=== PATIENT | female | born 1965 | race Caucasian/White ===

== ENCOUNTER 2017-11-14 08:33 | Emergency (ER) | payer MEDICAID, OTHER ==
[2017-11-14 08:38] VITALS: BP 151/83; PULSE 76; RESP 16; TEMP 98.3; O2SAT 98
[2017-11-14 08:40] VITALS: BMI 24.0
--- NOTE | 2017-11-14 09:53 | ED PDOC ---
HPI: General Adult Time Seen by Provider: 11/14/17 09:15 Chief Complaint (Nursing): Med Refill Chief Complaint (Provider): Med Refill History Per: Patient History/Exam Limitations: no limitations Additional Complaint(s): 52 y/o female presents to the ED for medicine refill. Sates that she is aon blood pressue medications, takes Toprol for tachycardia and Lexapro for PTSD and depression. Reports that she ran out of medications about a month ago and wasn't able to get new medications as her medicaid was cut. She reports feeling anxious since then and wants her medications but she can't. Denies any further medical complaints. Past Medical History Reviewed: Historical Data, Nursing Documentation, Vital Signs Vital Signs: Last Vital Signs Temp 98.3 F 11/14/17 08:37 Pulse 76 11/14/17 08:37 Resp 16 11/14/17 08:37 BP 151/83 H 11/14/17 08:37 Pulse Ox 98 11/14/17 10:07 - Medical History PMH: Hypothyroidism - Surgical History Surgical History: No Surg Hx - Family History Family History: States: Unknown Family Hx - Social History Current smoker - smoking cessation education provided: No (Never smoked) Alcohol: Social Drugs: Denies - Allergies Allergies/Adverse Reactions: Allergies Allergy/AdvReac Type Severity Reaction Status Date / Time No Known Allergies Allergy Verified 11/14/17 08:48 Review of Systems ROS Statement: Except As Marked, All Systems Reviewed And Found Negative (As per HPI, otherwise negative) Constitutional: Positive for: Other (Medicine refill) Physical Exam - Reviewed Nursing Documentation Reviewed: Yes Vital Signs Reviewed: Yes - Physical Exam Appears: Positive for: Non-toxic, No Acute Distress Head Exam: Positive for: ATRAUMATIC, NORMAL INSPECTION, NORMOCEPHALIC Skin: Positive for: Normal Color, Warm, Dry Eye Exam: Positive for: EOMI, Normal appearance, PERRL ENT: Positive for: Normal ENT Inspection Neck: Positive for: Normal, Painless ROM, Supple Cardiovascular/Chest: Positive for: Regular Rate, Rhythm. Negative for: Murmur Respiratory: Positive for: Normal Breath Sounds. Negative for: Accessory Muscle Use, Respiratory Distress Gastrointestinal/Abdominal: Positive for: Normal Exam, Bowel Sounds, Soft. Negative for: Tenderness Back: Positive for: Normal Inspection Extremity: Positive for: Normal ROM. Negative for: Deformity Neurologic/Psych: Positive for: Alert, Oriented (x3) - ECG O2 Sat by Pulse Oximetry: 98 (RA) Pulse Ox Interpretation: Normal Medical Decision Making Medical Decision Making: Time: 09:15 Initial Impression: Med refill Plan: Crisis Evaluation Time: 10:06 Patient was seen by crisis and got an appointment in 3 days for mental health followup Scribe Attestation: Documented by Suzan Morton acting as a scribe for Dimple Garzon MD. Scribe Attestation: All medical record entries made by the Scribe were at my direction and personally dictated by me. I have reviewed the chart and agree that the record accurately reflects my personal performance of the history, physical exam, medical decision making, and the department course for this patient. I have also personally directed, reviewed, and agree with the discharge instructions and disposition. Disposition - Disposition Forms: [employer] ([place])
== END 2017-11-14 10:38 | disposition home or self-care (01) ==
LOC: H.ER 08:33
DX: I10 Essential (primary) hypertension (principal); Z86.59 Personal history of other mental and behavioral disorders; Z76.0 Encounter for issue of repeat prescription; E03.9 Hypothyroidism, unspecified